=== PATIENT | male | born 1950 | race Caucasian/White ===

== ENCOUNTER 2019-05-06 05:25 | Outpatient (CLI) | payer MEDICARE ==
[2019-05-06 13:00] LABS: Hemoglobin 15.6 g/dL (14.0-18.0); Mean Corpuscular HGB CONC 34.5 g/dL (32.0-36.0); Mean Corpuscular Hemoglobin 32.5 pg (27.0-31.0); Mean Corpuscular Volume 94.1 fL (78.0-98.0); Mean Platelet Volume 8.1 fL (7.4-10.4); Platelet Count 176 thou/uL (130-400); RBC Distribution Width 13.1 % (11.5-14.5); Red Blood Cell (RBC) Count 4.81 mill/uL (4.70-6.10); White Blood Cell (WBC) Count 6.6 thou/uL (4.8-10.8)
[2019-05-06 13:01] LABS: Bacteria/HPF None Seen HPF (None Seen); Bilirubin Negative (Negative); Blood, Urine Negative (Negative); Clarity Clear (Clear); Glucose, Urine (Dipstick) 50 mg/dL (Negative); Leukocyte Negative Leu/uL (Negative); Nitrite Negative (Negative); Protein, Urine (Dipstick) Negative (Neg-Trace); RBC/HPF 0-3 HPF (0-3); Squamous Epithelial None Seen HPF (0-3); Urobilinogen Normal mg/dL (Less than 2); WBC/HPF 0-3 HPF (0-3)
[2019-05-06 13:08] LABS: PTT 28.9 SEC (22.9-36.1); Prothrombin Time 12.9 SEC (12.0-14.7)
[2019-05-06 13:27] LABS: Anion Gap 15 mmol/L (10-20); BUN (Urea Nitrogen) 17 mg/dL (8.4-25.7); Calc. Creatinine Clearance 0 mL/min (70-130); Calcium 10.1 mg/dL (7.8-10.44); Carbon Dioxide 28 mmol/L (23-31); Chloride 101 mmol/L (98-107); Estimated GFR-MDRD 71; Glucose 140 mg/dL (80-115); Potassium 4.6 mmol/L (3.5-5.1); Sodium 139 mmol/L (136-145)
== END 2019-05-06 05:26 | disposition home or self-care (01) ==
LOC: LABBT 05:25
PROVIDERS: ATTEND Urology
DX: Z01.818 Encounter for other preprocedural examination (principal); N40.1 Benign prostatic hyperplasia with lower urinary tract symptoms; N13.8 Other obstructive and reflux uropathy; R30.0 Dysuria
CPT/HCPCS: 80048; 81001; 85027; 85610; 85730; 87086; 93005; 93010

== ENCOUNTER 2019-05-13 09:54 | Day surgery (SDC) | payer MEDICARE ==
[2019-05-06 11:59] VITALS: BMI 28.8
[2019-05-13] MEDS ORDERED: Levofloxacin 500 mg/D5W 100 ml Premix Bag ONE (10:17)
[2019-05-13] MEDS ORDERED: Fentanyl 100 MCG/2 ML VIAL ONE (11:01)
[2019-05-13] MEDS ORDERED: PROPOFOL 60 ML ONE (11:01)
[2019-05-13] MEDS ORDERED: Phenazopyridine HCl 97.5 MG TABLET ONE (13:26)
--- NOTE | 2019-05-13 17:48 | OP ---
DATE OF PROCEDURE: 05/13/2019 SERVICE: Urology. PREOPERATIVE DIAGNOSIS: Benign prostatic hypertrophy. POSTOPERATIVE DIAGNOSIS: Benign prostatic hypertrophy. PROCEDURE PERFORMED: UroLift. INDICATIONS FOR PROCEDURE: Mr. Curtis is a 68-year-old white male with mild BPH, but a high bladder neck and obstructive urinary symptoms. We had talked about medical therapy versus the UroLift procedure and he was more interested in the UroLift. Risks and benefits were discussed and he has agreed to proceed forward. DESCRIPTION OF PROCEDURE: After identification of armband and verification of consent, the patient was brought back to the operating room, where he underwent total intravenous anesthesia. He was placed in the dorsal lithotomy position and prepped and draped in the usual sterile fashion. After appropriate time-out, a lubricated 21-Chinese rigid cystoscope with visual obturator was passed through the urethra into the bladder. The prostate showed a high bladder neck with mild lateral lobe obstruction. The visual obturator was switched out for the UroLift implant device and the first implant was placed in the patient's left proximal prostate by compressing the tissues laterally and bringing the device back approximately 1.5 cm away from the bladder neck. With downward traction and lateral compression, the safety was released and the Nitinol needle fired with the blue needle. The capsular tab was set and tensioned with the cisneros trigger and the UroLift was advanced forward until the white line was in the keyhole, at which point the urethral end-piece was delivered using the cisneros release trigger. This resulted in nice compression and lifting of the prostate laterally. This was then repeated on the patient's right proximal prostate and then 2 additional implants placed at the left and right apical prostate. It resulted in nice lateral lobe expansion, but there was a significant cat-eye effect with sagging of the anterior prostate. Therefore, additional implants were placed at 10 and 2 o'clock on the anterior prostate to lift it up higher, which resulted in further elevation of the prostate over the bladder neck. One of the UroLift implants on the left had a pull-through, and so this UroLift was discarded and not left in the patient, but a total of 7 implants were used with 6 being left in the patient. Upon completion, the prostate did appear wide open. The bladder neck still shows some elevation, which may result in a minor obstruction, but we will evaluate this postoperatively and determine if the patient needs any further treatment of procedures. The scope was then removed. An 18-Chinese Norris catheter was placed into the patient's bladder with ease. 10 mL of sterile water was placed into the balloon. The catheter was hooked up to gravity drainage. The patient was then taken out of positioning, awakened, taken to Day Stay for recovery in stable condition. COMPLICATIONS: None. ESTIMATED BLOOD LOSS: Minimal. RETAINED TUBES AND DRAINS: An 18-Chinese Norris catheter with 10 mL of sterile water in the balloon. SPECIMENS: None. IMPLANTS USED: Seven. DISPOSITION: The patient will undergo a void trial in Day Stay and be discharged with followup on an outpatient basis. Job ID: [id number]
== END 2019-05-13 16:38 | disposition home or self-care (01) ==
LOC: SDC 09:54
PROVIDERS: ATTEND Urology
PROC: 0T7D8DZ Dilation of Urethra with Intraluminal Device, Via Natural or Artificial Opening Endoscopic (ICD-10-PCS; principal; 2019-05-13)
DX: N40.1 Benign prostatic hyperplasia with lower urinary tract symptoms (principal); N13.8 Other obstructive and reflux uropathy; R39.15 Urgency of urination; R39.12 Poor urinary stream; I10 Essential (primary) hypertension; E11.9 Type 2 diabetes mellitus without complications; E78.5 Hyperlipidemia, unspecified; K21.9 Gastro-esophageal reflux disease without esophagitis; Z79.82 Long term (current) use of aspirin; Z79.84 Long term (current) use of oral hypoglycemic drugs; Z79.899 Other long term (current) drug therapy
CPT/HCPCS: C1889; C9740; J1956; J2704; J3010

== ENCOUNTER 2019-05-14 18:04 | Emergency (ER) | payer MEDICARE | END 2019-05-14 21:47 | disposition home or self-care (01) | LOC: ERS 18:04 | DX: T83.031A Leakage of indwelling urethral catheter, initial encounter (principal) | CPT/HCPCS: 99283 ==

== ENCOUNTER 2019-10-20 11:29 | Emergency (ER) | payer MEDICARE ==
[2019-10-20] MEDS ORDERED: Ketorolac Tromethamine 30 MG/ML VIAL ONE (12:00)
[2019-10-20] MEDS ORDERED: Bacitracin 1 PK ONE (12:05)
--- NOTE | 2019-10-20 12:53 | RAD ---
LEFT FOOT 3 VIEWS: Date: 10/20/2019 PROVIDED CLINICAL HISTORY: Foot pain status post injury. FINDINGS: There is no evidence for fracture or other acute osseous abnormality. If there is persistent clinical concern, conservative management and follow-up imaging are advised. IMPRESSION: As above. POS: CRISTINA
[2019-10-20] MEDS ORDERED: Adacel (T-DAP) 0.5 ML SYRINGE ONE (13:15)
== END 2019-10-20 13:45 | disposition home or self-care (01) ==
LOC: ERS 11:29
DX: S90.32XA Contusion of left foot, initial encounter (principal); E11.9 Type 2 diabetes mellitus without complications; I10 Essential (primary) hypertension; Z79.84 Long term (current) use of oral hypoglycemic drugs; Z79.899 Other long term (current) drug therapy; W20.8XXA Other cause of strike by thrown, projected or falling object, initial encounter
CPT/HCPCS: 90715; 96372; J1885

== ENCOUNTER 2019-10-26 14:50 | Outpatient (CLI) | payer MEDICARE ==
--- NOTE | 2019-10-26 15:50 | RAD ---
LEFT FOOT: 10/26/19 Three views. HISTORY: Injury to foot with pain. Comparison made to recent exam of 10/20/19. Tarsals and metatarsals appear intact and unchanged. There is now a transverse mildly displaced fracture involving the proximal phalanx of the great toe. Phalanges otherwise unremarkable. IMPRESSION: Acute transverse fracture with mild displacement involving the proximal phalanx of the great toe. POS: AH
== END 2019-10-26 14:51 | disposition home or self-care (01) ==
LOC: SCSRAD 14:50
PROVIDERS: ATTEND Family Medicine
DX: S99.922D Unspecified injury of left foot, subsequent encounter (principal)

== ENCOUNTER 2020-06-28 10:45 | Outpatient (CLI) | payer MEDICARE ==
[2020-06-28] MEDS ORDERED: Iopamidol-370 76% 500 ML 1 ML ONE (13:51)
== END 2020-06-28 10:46 | disposition home or self-care (01) ==
LOC: BICCT 10:45
PROVIDERS: ATTEND Family Medicine
DX: R10.32 Left lower quadrant pain (principal); R30.0 Dysuria; K57.30 Diverticulosis of large intestine without perforation or abscess without bleeding; N28.1 Cyst of kidney, acquired; N28.9 Disorder of kidney and ureter, unspecified; M47.816 Spondylosis without myelopathy or radiculopathy, lumbar region
CPT/HCPCS: 74177; Q9967

== ENCOUNTER 2020-08-23 11:39 | Outpatient (CLI) | payer MEDICARE | END 2020-08-23 11:40 | disposition home or self-care (01) | LOC: BICRAD 11:39 | PROVIDERS: ATTEND Family Medicine | DX: M25.561 Pain in right knee (principal); M25.562 Pain in left knee; G89.29 Other chronic pain ==

== ENCOUNTER 2024-04-18 08:14 | Outpatient (CLI) | payer MEDICARE | END 2024-04-18 08:15 | disposition home or self-care (01) | LOC: BICMRI 08:14 | PROVIDERS: ATTEND Family Medicine | DX: M47.26 Other spondylosis with radiculopathy, lumbar region (principal); M48.061 Spinal stenosis, lumbar region without neurogenic claudication; M47.817 Spondylosis without myelopathy or radiculopathy, lumbosacral region | CPT/HCPCS: 72148 ==

== ENCOUNTER 2024-10-10 23:18 | Observation (INO) | payer MEDICARE ==
[2024-10-11] MEDS ORDERED: Ketorolac Tromethamine 30 MG (1 mL) VIAL ONE (01:34)
[2024-10-11] MEDS ORDERED: Boostrix 0.5 ML (Tdap) VIAL (>/=7 yrs of age) ONE (01:35)
[2024-10-11 02:23] LABS: #Basophils Less than 0.03 10x3/uL (0.0-0.2); #Eosinophils 0.07 10x3/uL (0.0-0.7); #Monocytes 0.46 10x3/uL (0.11-0.59); #Neutrophils 5.03 10x3/uL (1.40-6.50); %Basophils 0.1 % (0.0-1.0); %Eosinophils 1.0 % (0.0-10.0); %Lymphocytes 23.8 % (21.0-51.0); %Monocytes 6.3 % (0.0-10.0); %Neutrophils 68.5 % (42.0-75.0); Hematocrit 40.7 % (42.0-52.0); Hemoglobin 14.4 g/dL (14.0-18.0); Mean Corpuscular Hemoglobin 31.9 pg (27.0-31.0); Mean Corpuscular Volume 90.2 fL (78.0-98.0); Platelet Count 145 10x3/uL (130-400); Red Blood Cell (RBC) Count 4.51 mill/uL (4.70-6.10); White Blood Cell (WBC) Count 7.34 10x3/uL (4.8-10.8)
[2024-10-11 02:50] LABS: Anion Gap 13 mmol/L (10-20); BUN (Urea Nitrogen) 20 mg/dL (8.4-25.7); Calc. Creatinine Clearance 0 mL/min (70-130); Calcium 9.0 mg/dL (7.8-10.44); Carbon Dioxide 22 mmol/L (23-31); Chloride 101 mmol/L (98-107); Glucose 271 mg/dL (83-110); Potassium 4.0 mmol/L (3.5-5.1); Sodium 132 mmol/L (136-145)
[2024-10-11] MEDS ORDERED: Acetaminophen 325 MG TAB PO PRN (04:16)
[2024-10-11] MEDS ORDERED: Glucagon 1 MG/ML KIT IM PRN (04:17)
[2024-10-11] MEDS ORDERED: Dextrose 50% Abboject 50 ML SYRINGE SLOW IVP PRN (04:17)
[2024-10-11 04:46] VITALS: BMI 28.3
[2024-10-11] MEDS: Clindamycin/D5W 900 MG in Premix 1 BAG IVPB SCH (05:08)
[2024-10-11] MEDS: Hyoscyamine SL 0.125 MG TAB PO SCH (05:55)
[2024-10-11] MEDS: Lisinopril 20 MG TAB PO SCH (08:55)
[2024-10-11] MEDS ORDERED: Iopamidol 370 76% 100 ML VIAL ONE (10:25)
[2024-10-11 16:45] VITALS: BP 146/74; TEMP 97.8
== END 2024-10-11 17:12 | disposition home or self-care (01) ==
LOC: ERS 23:18 → MSONC 10-11 03:58
PROVIDERS: ADMIT Internal Medicine; ATTEND Hospitalist
DX: S41.151A Open bite of right upper arm, initial encounter (principal); I10 Essential (primary) hypertension; E11.9 Type 2 diabetes mellitus without complications; Z79.84 Long term (current) use of oral hypoglycemic drugs; Z79.899 Other long term (current) drug therapy; W64.XXXA Exposure to other animate mechanical forces, initial encounter
CPT/HCPCS: 73201; 80048; 82962; 85025; 90715; 93971; 96367; 96376; G0378; J0295; J1815; J1885; J3490; Q9967; 36415; 36416; 90471; 96365; 96372

== ENCOUNTER 2025-02-25 04:21 | Emergency (ER) | payer MEDICARE ==
[2025-02-25] MEDS ORDERED: Ondansetron PF 4 MG/2 ML Vial ONE (05:17)
[2025-02-25 06:30] LABS: #Basophils 0.03 10x3/uL (0.0-0.2); #Eosinophils 0.10 10x3/uL (0.0-0.7); #Monocytes 0.61 10x3/uL (0.11-0.59); #Neutrophils 4.50 10x3/uL (1.40-6.50); %Basophils 0.4 % (0.0-1.0); %Eosinophils 1.3 % (0.0-10.0); %Lymphocytes 33.0 % (21.0-51.0); %Monocytes 7.8 % (0.0-10.0); %Neutrophils 57.1 % (42.0-75.0); Hematocrit 42.6 % (42.0-52.0); Hemoglobin 14.8 g/dL (14.0-18.0); Mean Corpuscular Hemoglobin 30.9 pg (27.0-31.0); Mean Corpuscular Volume 88.9 fL (78.0-98.0); Platelet Count 166 10x3/uL (130-400); Red Blood Cell (RBC) Count 4.79 mill/uL (4.70-6.10); White Blood Cell (WBC) Count 7.86 10x3/uL (4.8-10.8)
[2025-02-25 06:41] LABS: ALT (SGPT) 23 U/L (Less than 45); AST (SGOT) 23 U/L (11-34); Albumin 4.1 g/dL (3.1-4.5); Alkaline Phosphatase 52 U/L (40-110); Anion Gap 19 mmol/L (10-20); BUN (Urea Nitrogen) 24 mg/dL (8.4-25.7); Bilirubin, Total 1.0 mg/dL (0.3-1.2); Calc. Creatinine Clearance 0 mL/min (70-130); Calcium 9.3 mg/dL (7.8-10.44); Carbon Dioxide 22 mmol/L (23-31); Chloride 94 mmol/L (98-107); Globulin 3.1 g/dL (2.4-3.5); Glucose 206 mg/dL (83-110); Potassium 4.4 mmol/L (3.5-5.1); Sodium 131 mmol/L (136-145)
[2025-02-25 06:44] LABS: INR-International Normal Ratio 1.0; PTT 29.0 sec (22.9-36.1); Prothrombin Time 13.1 sec (12.0-14.7)
[2025-02-25] MEDS ORDERED: Iopamidol 370 76% 100 ML VIAL ONE (11:58)
== END 2025-02-25 09:37 | disposition home or self-care (01) ==
LOC: ERS 04:21
DX: M54.2 Cervicalgia (principal); R53.1 Weakness; E11.9 Type 2 diabetes mellitus without complications; I10 Essential (primary) hypertension
CPT/HCPCS: 70496; 70498; 80053; 84484; 85025; 85610; 85730; 86141; J2270; J2405; 93005; 96374; 96375; Q9967